=== PATIENT | male | born 1970 | race Caucasian/White ===

== ENCOUNTER 2017-03-31 17:31 | Emergency (ER) | payer SELFPAY ==
[~2017-03-31 17:31] MED LIST: CIPRO500 MG PO; FLAGYL500 MG PO
== END 2017-03-31 18:38 | disposition home or self-care (01) ==
LOC: ER1 17:31
DX: S62.667A Nondisplaced fracture of distal phalanx of left little finger, initial encounter for closed fracture (principal); E11.40 Type 2 diabetes mellitus with diabetic neuropathy, unspecified; W31.89XA Contact with other specified machinery, initial encounter; Y92.89 Other specified places as the place of occurrence of the external cause; Y99.0 Civilian activity done for income or pay
CPT/HCPCS: 73130; 99283

== ENCOUNTER 2021-01-16 18:17 | Observation (INO) | payer BC ==
[~2021-01-16] VITALS: Ht 172.7 cm; Wt 95.3 kg
[~2021-01-16 18:17] MED LIST changes: +ASPIR 8181 MG PO; +CEFUROXIME500 MG PO; +DELSYM30 MG/5 ML PO; +FLONASE 0.05% N16 GM; +HUMALOG100 UNIT/1 SC; +IBUPROFEN600 MG PO; +IMODIUM CAP 2 MG2 MG PO; +LIDOCAINE PAIN1 EACH TP; +LIORESAL TAB 1010 MG PO; +LIPITOR10 MG PO; +NEURONTIN600 MG PO; +ONDANSETRON ODT4 MG PO; +SUDOGEST60 MG PO; +TESSALON PERLE100 MG PO; +ZESTRIL2.5 MG PO; +ZITHROMAX250 MG PO; +ZOFRAN ODT 4 MG4 MG PO; +ZOFRAN ODT 4 MG4 MG SL; +ZOFRAN4 MG PO
[2021-01-16 18:34] LABS: HEMOGLOBIN 12.8 gm/dl (14.0-17.5); RED BLOOD COUNT 4.37 M/UL (4.20-5.50); WHITE BLOOD COUNT 8.2 K/UL (4.5-11.0)
[2021-01-16 18:59] LABS: BUN/CREATININE RATIO 13 (0-10)
[2021-01-17] MEDS ORDERED: GABAPENTIN600 MG PO (09:08)
[2021-01-17] MEDS ORDERED: ATORVASTATIN CA10 MG PO (09:09)
[2021-01-17] MEDS ORDERED: ARNUITY ELLIP100 MCG INH (09:09)
[2021-01-17] MEDS ORDERED: STIOLTO RESPIMAT4 GM INH (09:10)
[2021-01-17] MEDS ORDERED: PROTONIX 40 MG40 M1 PO (09:11)
[2021-01-17] MEDS ORDERED: CARVEDILOL6.25 MG PO (09:13)
[2021-01-17] MEDS ORDERED: HUMALOG 10100 UNITS/ SC (09:14)
[2021-01-17] MEDS ORDERED: ECOTRIN81 MG PO (11:17)
[2021-01-17] MEDS ORDERED: LISINOPRIL10 MG PO (11:17)
[2021-01-17] MEDS ORDERED: ASPERCREME LID1 EACH TP (11:17)
== END 2021-01-17 17:10 | disposition home or self-care (01) ==
LOC: ER1 18:17 → CDU 20:10 → PROG CARE 20:10
PROVIDERS: Emergency Medicine; ADMIT Internal Medicine Infectious Disease
DX: R07.89 Other chest pain (principal); I10 Essential (primary) hypertension; E11.9 Type 2 diabetes mellitus without complications; E78.5 Hyperlipidemia, unspecified; J44.9 Chronic obstructive pulmonary disease, unspecified; K21.9 Gastro-esophageal reflux disease without esophagitis; Z86.73 Personal history of transient ischemic attack (TIA), and cerebral infarction without residual deficits; Z86.14 Personal history of Methicillin resistant Staphylococcus aureus infection; Z98.890 Other specified postprocedural states; Z79.4 Long term (current) use of insulin; Z79.899 Other long term (current) drug therapy; Z20.822 Contact with and (suspected) exposure to COVID-19
CPT/HCPCS: 71045; 80053; 80307; 82550; 82553; 83690; 83735; 83874; 83880; 84100; 84484; 85025; 85730; 93005; 96374; 99285; G0378; J1885; U0002

== ENCOUNTER → 2021-02-22 | Outpatient (CLI) | payer BC ==
[~2021-02-22] MED LIST changes: +ARNUITY ELLIP100 MCG INH; +ASPERCREME LID1 EACH TP; +ATORVASTATIN CA10 MG PO; +CARVEDILOL6.25 MG PO; +ECOTRIN81 MG PO; +GABAPENTIN600 MG PO; +HUMALOG 10100 UNITS/ SC; +LISINOPRIL10 MG PO; +PROTONIX 40 MG40 M1 PO; +STIOLTO RESPIMAT4 GM INH
== END ==
LOC: EMI 13:00
DX: M47.24 Other spondylosis with radiculopathy, thoracic region (principal); R20.2 Paresthesia of skin
CPT/HCPCS: 72146